=== PATIENT | male | born 1990 | race Two or more races ===

== ENCOUNTER 2016-05-01 23:50 | Emergency (ER) | payer OTHER ==
[~2016-05-01] VITALS: Ht 180.3 cm; Wt 90.7 kg
[2016-05-02] MEDS ORDERED: MELATONIN1 M1 SL (00:04)
--- NOTE | 2016-05-02 00:13 | Emergency Room Report ---
History of Present Illness General Chief Complaint: Lower Extremity Injury Source: Patient Present Illness HPI Is a 25-year-old male with no respiratory issue. 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 He was walking [id number] cooking when he felt a pop in his left foot. Then he had hard time bearing weight. Complaining of severe pain. Denies any fever or chills. No trauma. No other complaint. Allergies: Coded Allergies: No Known Allergies (Unverified , 05/02/16) Patient History Past Medical History: see triage record, old chart reviewed Past Surgical History: none Pertinent Family History: none Social History: Denies: drug use Immunizations: other Reviewed Nursing Documentation: PMH: Agreed, PSxH: Agreed Nursing Documentation-PM Past Medical History: No Stated History Review of Systems Eye: Denies: blurred vision, eye pain ENT: Denies: ear pain, nose congestion, throat swelling Respiratory: Denies: cough, shortness of breath Cardiovascular: Denies: chest pain, palpitations Gastrointestinal: Denies: abdominal pain, diarrhea, nausea, vomiting Musculoskeletal: Reports: joint pain, joint swelling, Denies: back pain Skin: Denies: rash Neurological: Denies: headache, numbness Endocrine: Denies: increased thirst, increased urine Hematologic/Lymphatic: Denies: easy bruising All Other Systems: negative except mentioned in HPI Physical Exam Vital Signs Date Time Temp Pulse Resp B/P Pulse Ox O2 Delivery O2 Flow Rate FiO2 05/01/16 23:57 98.1 93 16 127/76 96 Room Air vitals normal Sp02 EP Interpretation: reviewed, normal General Appearance: well appearing, no apparent distress, alert Head: normocephalic, atraumatic Eyes: bilateral eye EOMI, bilateral eye PERRL ENT: hearing grossly normal, normal pharynx Neck: full range of motion, supple, no meningismus Respiratory: chest non-tender, lungs clear, normal breath sounds Cardiovascular #1: regular rate, rhythm, no murmur Gastrointestinal: normal bowel sounds, non tender, no mass, no organomegaly, no bruit, non-distended Musculoskeletal: back normal, normal range of motion, other - Left foot: There is tenderness, edema, and tenderness to the base of the fifth metatarsal bone. No pain over the Achilles, ankle or knee. Sensation normal. Pulses normal. Neurologic: alert, oriented x3 Psychiatric: mood/affect normal Skin: warm/dry Procedures Splinting Splinting : Consent: Verbal Location: left foot Hand-Made Type: plaster Splint: poserior short Pre-Proc Neuro Vasc Exam: normal Post-Proc Neuro Vasc Exam: normal Patient Tolerated: Well Complications: None Progress crutches given Medical Decision Making Diagnostic Impression: Primary Impression: [place] fracture Qualified Codes: S92.352A - Displaced fracture of fifth metatarsal bone, left foot, initial encounter for closed fracture ER Course Patient presents with a fifth metatarsal fracture. This is a [place] fracture. High risk for nonunion. We'll discharge home after splinting and crutches. He' ll need followup for orthopedic evaluation. Other X-Ray Diagnostic Results Other X-Ray Diagnostic Results : X-Ray Ordered: Left foot x-rays Date: May 02, 2016 Time: 00:41 EP Interpretation: Yes Findings: no dislocation, no soft tissue swelling, other - [place] fracture Number of Views: 3 Last Vital Signs Date Time Temp Pulse Resp B/P Pulse Ox O2 Delivery O2 Flow Rate FiO2 05/01/16 23:57 98.1 93 16 127/76 96 Room Air Status: improved Disposition: HOME, SELF-CARE Condition: Stable Scripts Hydrocodone/Acetaminophen 5-325* (HYDROCODONE/ACETAMINOPHEN 5-325*) 1 Each Tablet 1 TAB ORAL Q6H Y for For Pain, #30 TAB 0 Refills Prov: NURYS BUTTS M.D. 05/02/16 Additional Instructions: No weightbearing. Use crutches. Followup with your employer and a couple days. He will be referred to see orthopedic DrOz Garcia if symptom worsen. NURYS BUTTS M.D. May 02, 2016 00:13
[2016-05-02] MEDS ORDERED: Norco 5mg/325mg tab ORAL ONE (00:15)
[2016-05-02] MEDS ORDERED: HYDROCODON-ACE1 EA15 ORAL (00:41)
[2016-05-02 01:06] VITALS: BP 127/76
--- NOTE | 2016-05-02 09:10 | Diagnostic Imaging Report ---
Indication: Left foot pain Technique: XRAY FOOT MIN 3V LEFT Comparison: None Findings: There is a fracture of the fifth proximal metatarsal 2.6 cm from the proximal pole. Bone mineralization is normal. Impression: Acute indeterminate fifth proximal metatarsal fracture ([place] fracture). Clinical correlation recommended.
== END 2016-05-02 01:08 | disposition home or self-care (01) ==
LOC: EMR 05-02 00:30
DX: S92.352A Displaced fracture of fifth metatarsal bone, left foot, initial encounter for closed fracture (principal); X58.XXXA Exposure to other specified factors, initial encounter; Y92.511 Restaurant or cafe as the place of occurrence of the external cause; Y99.0 Civilian activity done for income or pay
CPT/HCPCS: 29515; 99283